=== PATIENT | female | born 1935 | race Caucasian/White ===

== ENCOUNTER 2020-04-26 12:56 | Emergency (ER) | payer MEDICARE, MEDICAID ==
[~2020-04-26] VITALS: Ht 157.5 cm; Wt 56.8 kg
[2020-04-26 15:17] LABS: BASOPHILS % 0.7 % (0.0-2.0); EOSINOPHILS % 0.8 % (0.0-5.0); HEMATOCRIT. 38.4 % (36.0-48.0); HEMOGLOBIN. 13.1 g/dL (12.0-16.0); MEAN CORPUSCULAR HEMOGLOBIN 31.5 pg (28.0-32.0); MEAN CORPUSCULAR VOLUME 92.7 fL (81.0-99.0); MEAN PLATELET VOLUME 7.7 fl (7.4-10.4); MONOCYTES % 5.6 % (2.0-8.0); NEUTROPHILS % 57.9 % (40.0-76.0); PLATELET 346 x1000/uL (130-400); RED BLOOD CELL COUNT 4.15 mill/uL (4.2-5.4); RED CELL DISTRIBUTION WIDTH 13.6 % (11.6-14.6)
[2020-04-26 15:26] LABS: CHLORIDE 98 mEq/L (98-107)
[2020-04-26 17:05] VITALS: BP 177/65
[2020-04-26] MEDS ORDERED: AMLODIPINE 10MG TABLET PO ONE (17:30)
== END 2020-04-26 18:26 | disposition home or self-care (01) ==
LOC: ER 13:40
DX: I10 Essential (primary) hypertension (principal); E11.9 Type 2 diabetes mellitus without complications; H40.9 Unspecified glaucoma
CPT/HCPCS: 36415; 71045; 80053; 82962; 83880; 84484; 85025; 99285